=== PATIENT | male | born 1975 | race Two or more races ===

== ENCOUNTER 2023-08-24 17:18 | Inpatient (IN) | payer OTHER ==
[~2023-08-24] VITALS: Ht 175.3 cm; Wt 68.9 kg
[2023-08-24] MEDS ORDERED: Morphine 4mg INJECTION 4 MG/ML INJ IV PRN (18:30)
[2023-08-24] MEDS ORDERED: ONDANSETRON HCL INJ 2MG/ML 2ML 2 MG/ML VIAL IV PRN (18:30)
[2023-08-24 18:46] LABS: BASOPHILS # (AUTO) 0.1 (0.0-0.1); BASOPHILS % 0.3 % (0.0-1.0); EOSINOPHILS # (AUTO) 0.1 (0.0-0.4); EOSINOPHILS % 0.2 % (0.0-6.0); HEMATOCRIT 46.4 % (38.2-49.6); LYMPHOCYTES # (AUTO) 1.2 (1.0-3.2); LYMPHOCYTES % 5.6 % (18.0-39.1); MEAN CORPUSCULAR HEMOGLOBIN 31.6 pg (28-32); MEAN CORPUSCULAR HGB CONC 34.5 g/dL (31-35); MEAN CORPUSCULAR VOLUME 91.5 fL (81-99); MONOCYTES % 9.2 % (4.4-11.3); NEUTROPHILS # (AUTO) 17.9 (2.1-6.9); NEUTROPHILS % 84.1 % (38.7-80.0); PLATELET COUNT 268 x10e3/uL (140-360); RED BLOOD COUNT 5.07 x10e6/uL (4.3-5.7); RED CELL DISTRIBUTION WIDTH 12.6 % (11.7-14.4); WHITE BLOOD COUNT 21.26 x10e3/uL (4.8-10.8)
[2023-08-24] MEDS ORDERED: ACETAMINOPHEN 325 MG TAB PO STA (18:48)
[2023-08-24 19:00] LABS: ALBUMIN 3.5 g/dL (3.5-5.0); ALBUMIN/GLOBULIN RATIO 0.9 (0.8-2.0); ALKALINE PHOSPHATASE 84 IU/L (40-150); ANION GAP 14.8 mmol/L (8-16); BILIRUBIN,TOTAL 0.8 mg/dL (0.2-1.2); BLOOD UREA NITROGEN 13 mg/dL (7-26); BUN/CREATININE RATIO 14 (6-25); CALCIUM 8.9 mg/dL (8.4-10.2); CARBON DIOXIDE 27 mmol/L (22-29); CHLORIDE 99 mmol/L (98-107); CREATININE, SERUM 0.94 mg/dL (0.72-1.25); EST GLOMERULAR FILTRATION RATE 101 ML/MIN (>=60); GLUCOSE 95 mg/dL (74-118); POTASSIUM 3.8 mmol/L (3.5-5.1); SODIUM 137 mmol/L (136-145); TOTAL PROTEIN 7.4 g/dL (6.5-8.1)
[2023-08-24 19:01] LABS: ALANINE AMINOTRANSFERASE < 6 IU/L (0-55); CREATINE KINASE 77 IU/L (30-200)
[2023-08-24 19:44] LABS: TROPONIN I < 0.001 ng/mL (0-0.300)
[2023-08-24] MEDS: SODIUM CHLORIDE 0.9% 1000ML 1,000 ML IV SCH (21:15)
[2023-08-25] MEDS: SODIUM CHLORIDE 0.9% 1000ML 1,000 ML IV SCH ×3 (02:30→16:46)
[2023-08-25 03:13] LABS: TROPONIN I 0.011 ng/mL (0-0.300)
[2023-08-25] MEDS ORDERED: SIMETHICONE 80 MG CHEW PO PRN (05:30)
[2023-08-25] MEDS ORDERED: ALBUTEROL/IPRATROPIUM 3 ML NEB NEB PRN (05:30)
[2023-08-25] MEDS ORDERED: DOCUSATE SODIUM 100 MG CAP PO PRN (05:30)
[2023-08-25] MEDS ORDERED: METOPROLOL TARTRATE INJ 1 MG/ML VIAL IV PRN (05:30)
[2023-08-25 05:58] LABS: BASOPHILS # (AUTO) 0.1 (0.0-0.1); BASOPHILS % 0.3 % (0.0-1.0); EOSINOPHILS # (AUTO) 0.2 (0.0-0.4); EOSINOPHILS % 1.2 % (0.0-6.0); HEMATOCRIT 42.3 % (38.2-49.6); HEMOGLOBIN 14.2 g/dL (14.0-18.0); LYMPHOCYTES # (AUTO) 1.1 (1.0-3.2); LYMPHOCYTES % 6.1 % (18.0-39.1); MEAN CORPUSCULAR HEMOGLOBIN 31.5 pg (28-32); MEAN CORPUSCULAR HGB CONC 33.6 g/dL (31-35); MEAN CORPUSCULAR VOLUME 93.8 fL (81-99); MONOCYTES # (AUTO) 1.9 (0.2-0.8); MONOCYTES % 10.5 % (4.4-11.3); NEUTROPHILS # (AUTO) 14.9 (2.1-6.9); NEUTROPHILS % 81.1 % (38.7-80.0); PLATELET COUNT 197 x10e3/uL (140-360); RED BLOOD COUNT 4.51 x10e6/uL (4.3-5.7); RED CELL DISTRIBUTION WIDTH 12.6 % (11.7-14.4); WHITE BLOOD COUNT 18.36 x10e3/uL (4.8-10.8)
[2023-08-25 06:18] LABS: ALBUMIN 2.9 g/dL (3.5-5.0); ALBUMIN/GLOBULIN RATIO 0.9 (0.8-2.0); ALKALINE PHOSPHATASE 70 IU/L (40-150); ANION GAP 12.7 mmol/L (8-16); BLOOD UREA NITROGEN 16 mg/dL (7-26); BUN/CREATININE RATIO 20 (6-25); CALCIUM 8.2 mg/dL (8.4-10.2); CARBON DIOXIDE 24 mmol/L (22-29); CHLORIDE 104 mmol/L (98-107); CREATININE, SERUM 0.79 mg/dL (0.72-1.25); EST GLOMERULAR FILTRATION RATE 111 ML/MIN (>=60); GLUCOSE 82 mg/dL (74-118); POTASSIUM 3.7 mmol/L (3.5-5.1); SODIUM 137 mmol/L (136-145); TOTAL PROTEIN 6.3 g/dL (6.5-8.1)
[2023-08-25] MEDS: Vancomycin IV 1 GM in SODIUM CHLORIDE 0.9% 250ML 250 ML IV SCH ×2 (06:19→09:00)
[2023-08-25 06:21] LABS: ALANINE AMINOTRANSFERASE < 6 IU/L (0-55)
[2023-08-25 15:05] VITALS: BP 103/68; PULSE 70; RESP 17; TEMP 98.3; O2SAT 96
[2023-08-25 15:07] VITALS: BP 103/68; PULSE 70; RESP 17; TEMP 98.3; O2SAT 96
[2023-08-25] MEDS: ACETAMINOPHEN 325 MG TAB PO PRN ×2 (16:46→21:10)
[2023-08-25 16:55] LABS: TROPONIN I 0.01 ng/mL (0-0.300)
[2023-08-25 20:00] VITALS: BP 91/54; PULSE 76; RESP 18; TEMP 97.6; O2SAT 94
[2023-08-25] MEDS: MELATONIN 3 MG TAB PO PRN (21:09)
[2023-08-26] VITALS: BP 91/50; PULSE 63; RESP 18; TEMP 97.2; O2SAT 94
[2023-08-26] MEDS: SODIUM CHLORIDE 0.9% 1000ML 1,000 ML IV SCH ×4 (02:30→20:34)
[2023-08-26 05:31] VITALS: BP 94/58; PULSE 70; RESP 19; TEMP 97.9; O2SAT 99
[2023-08-26 08:38] LABS: BASOPHILS % 0.3 % (0.0-1.0); EOSINOPHILS # (AUTO) 0.2 (0.0-0.4); EOSINOPHILS % 1.7 % (0.0-6.0); HEMATOCRIT 38.3 % (38.2-49.6); LYMPHOCYTES # (AUTO) 1.3 (1.0-3.2); LYMPHOCYTES % 10.7 % (18.0-39.1); MEAN CORPUSCULAR HEMOGLOBIN 31.4 pg (28-32); MEAN CORPUSCULAR HGB CONC 33.9 g/dL (31-35); MEAN CORPUSCULAR VOLUME 92.5 fL (81-99); MONOCYTES # (AUTO) 1.2 (0.2-0.8); MONOCYTES % 9.8 % (4.4-11.3); NEUTROPHILS # (AUTO) 9.1 (2.1-6.9); PLATELET COUNT 239 x10e3/uL (140-360); RED BLOOD COUNT 4.14 x10e6/uL (4.3-5.7); RED CELL DISTRIBUTION WIDTH 12.8 % (11.7-14.4); WHITE BLOOD COUNT 11.77 x10e3/uL (4.8-10.8)
[2023-08-26 08:42] VITALS: BP 147/85; PULSE 86; RESP 20; TEMP 97.9; O2SAT 95
[2023-08-26 09:00] VITALS: BP 100/62; PULSE 63; RESP 18; TEMP 98.3; O2SAT 100
[2023-08-26 09:03] LABS: ANION GAP 11.5 mmol/L (8-16); CALCIUM 7.9 mg/dL (8.4-10.2); CREATININE, SERUM 0.67 mg/dL (0.72-1.25); POTASSIUM 3.5 mmol/L (3.5-5.1)
[2023-08-26] MEDS: Vancomycin IV 1 GM in SODIUM CHLORIDE 0.9% 250ML 250 ML IV SCH (10:06)
[2023-08-26] MEDS: MELATONIN 3 MG TAB PO PRN (20:34)
[2023-08-26 23:50] VITALS: BP 108/68; PULSE 72; RESP 18; TEMP 97.8; O2SAT 98
[2023-08-26 23:51] VITALS: BP 108/68; PULSE 72; RESP 18; TEMP 97.8; O2SAT 98
[2023-08-27 08:31] VITALS: BP 114/70; PULSE 66; RESP 18; TEMP 98.4; O2SAT 96
[2023-08-27 08:32] VITALS: BP 98/63; PULSE 66; RESP 20; TEMP 98.4; O2SAT 96
[2023-08-27 08:44] LABS: BASOPHILS # (AUTO) 0.1 (0.0-0.1); BASOPHILS % 0.5 % (0.0-1.0); EOSINOPHILS # (AUTO) 0.2 (0.0-0.4); EOSINOPHILS % 2.2 % (0.0-6.0); HEMATOCRIT 40.8 % (38.2-49.6); HEMOGLOBIN 13.6 g/dL (14.0-18.0); LYMPHOCYTES # (AUTO) 1.5 (1.0-3.2); LYMPHOCYTES % 14.8 % (18.0-39.1); MEAN CORPUSCULAR HEMOGLOBIN 30.8 pg (28-32); MEAN CORPUSCULAR HGB CONC 33.3 g/dL (31-35); MEAN CORPUSCULAR VOLUME 92.3 fL (81-99); MONOCYTES # (AUTO) 1.1 (0.2-0.8); MONOCYTES % 10.1 % (4.4-11.3); NEUTROPHILS # (AUTO) 7.5 (2.1-6.9); NEUTROPHILS % 71.9 % (38.7-80.0); PLATELET COUNT 234 x10e3/uL (140-360); RED BLOOD COUNT 4.42 x10e6/uL (4.3-5.7); RED CELL DISTRIBUTION WIDTH 12.7 % (11.7-14.4); WHITE BLOOD COUNT 10.39 x10e3/uL (4.8-10.8)
[2023-08-27] MEDS: Vancomycin IV 1 GM in SODIUM CHLORIDE 0.9% 250ML 250 ML IV SCH (09:00)
[2023-08-27 09:02] VITALS: BP 98/63; PULSE 66; RESP 20; TEMP 98.4; O2SAT 96
[2023-08-27 09:21] LABS: ANION GAP 12.7 mmol/L (8-16); CALCIUM 8.1 mg/dL (8.4-10.2); CREATININE, SERUM 0.72 mg/dL (0.72-1.25); POTASSIUM 3.7 mmol/L (3.5-5.1)
[2023-08-27] MEDS ORDERED: ACETAMINOPHEN325 M1 PO (09:41)
[2023-08-27] MEDS ORDERED: ACETAMINOPHEN/CODEINE 300MG - 30MG TAB PO PRN (09:45)
[2023-08-27] MEDS ORDERED: ONDANSETRON ODT4 MG PO (09:53)
[2023-08-27] MEDS ORDERED: Acetaminophen/Codeine 300-30MG PO (09:53)
[2023-08-27] MEDS ORDERED: CLINDAMYCIN HC300 MG PO (09:53)
[2023-08-27] MEDS ORDERED: CEPHALEXIN500 MG PO (09:53)
[2023-08-27] MEDS ORDERED: ULTRAM 50MG50 MG PO (09:56)
[2023-08-27] MEDS ORDERED: ACETAMINOPHEN-1 EAC4 PO (09:56)
== END 2023-08-27 12:45 | disposition home or self-care (01) | DRG 872 ==
LOC: ER 17:26 → ERHOLD 18:30 → MED/SURG3 08-25 14:46
PROVIDERS: ADMIT Internal Medicine; ATTEND Internal Medicine
DX: A41.9 Sepsis, unspecified organism (principal); L03.116 Cellulitis of left lower limb; M25.462 Effusion, left knee; M60.9 Myositis, unspecified; S80.02XA Contusion of left knee, initial encounter; F17.210 Nicotine dependence, cigarettes, uncomplicated; M46.42 Discitis, unspecified, cervical region; W19.XXXA Unspecified fall, initial encounter; Y93.G3 Activity, cooking and baking; Y92.814 Boat as the place of occurrence of the external cause; S83.282A Other tear of lateral meniscus, current injury, left knee, initial encounter; Z20.822 Contact with and (suspected) exposure to COVID-19
CPT/HCPCS: 36415; 80048; 80053; 80202; 82550; 84484; 85025; 99284; J2543; J7030; J7050; U0002